=== PATIENT | female | born 1960 | race Caucasian/White ===

== ENCOUNTER 2021-12-04 00:35 | Day surgery (SDC) | payer OTHER, SELFPAY ==
[2021-11-23 10:28] VITALS: BMI 28.0
[2021-12-04 08:31] VITALS: BP 146/79; PULSE 68; RESP 20; TEMP 36.4; O2SAT 68; O2SAT 98
[2021-12-04] MEDS: LACTATED RINGERS 1,000 ML 150 ML IV CONT (08:43)
--- NOTE | 2021-12-04 09:10 | WPDGICN ---
Assessment and Plan Assessment and plan (1) History of colon polyps: Code(s): Z86.010 - Personal history of colonic polyps Status: Acute Assessment and Plan: Patient has a history of colon polyp. Plan is for patient have surveillance colonoscopy now and at intervals in the future. She is likely to have additional polyps over time. GI Consult Note Consult date/time: 12/04/21 09:10 HPI: Kristi Cerda is a 61 year old female Presents for screening colonoscopy. Patient reports that her current weight appetite and bowel movements are normal. She denies abdominal pain. She has had no bleeding. Patient reports her last colonoscopy in 2012 revealed colon polyps. She presents today for follow-up surveillance exam. Review of Systems Review of Systems: All systems reviewed & are unremarkable except as noted in HPI and below PMFSH Social History Social History Smoking packs per day: 1 Smoking cigarettes per day: 20.0 Years smoked: 12 Smoking pack-years: 12.00 Smoking status: Former smoker Tobacco type: cigarettes Alcohol intake: current Drinks per week: 5 Substance use: never Substance use type: does not use Living arrangements: with family Spiritual care concerns: No Meds Home Medications and Allergies Home Medications Medication Instructions Recorded Confirmed Type Adrenal Comples 2 cap PO DAILY 11/23/21 11/23/21 History Arthrosothe 3 cap PO DAILY 11/23/21 11/23/21 History Drenamin 1 cap PO DAILY 11/23/21 11/23/21 History Olprima 1 cap PO DAILY 11/23/21 11/23/21 History amoxicillin 2,000 mg PO PRN PRN 11/23/21 11/23/21 History fluticasone propionate [Allergy 1 spray INTRANASAL DAILY PRN 11/23/21 11/23/21 History Relief (fluticasone)] Allergies Allergy/AdvReac Type Severity Reaction Status Date / Time erythromycin base AdvReac Intermediate JITTERY, Verified 12/04/21 08:30 AGITATED Vital Signs Vital Signs - 24 hr 12/04/21 08:31 Temperature 97.6 F Pulse Rate 68 Respiratory Rate 20 Blood Pressure 146/79 H Pulse Oximetry 68 L Exam Narrative: Physical exam reveals patient to be alert. Vital signs stable. HEENT exam is unremarkable. Patient is anicteric. Lungs are clear to auscultation and percussion. Heart is without murmur or extra sounds. Abdominal exam bowel sounds present soft nontender with no hepatosplenomegaly. Digital external rectal exam is normal.
--- NOTE | 2021-12-04 09:29 | WPDANESEPPF ---
Anes - Initial Pre Proc Eval Procedure: Operation Date: 12/04/21 09:45 Proposed Procedures p Screening Colonoscopy - David Casas MD Date/Time: 12/04/21 09:29 Surgeon: David Casas MD Pre Op Diagnosis: hx of colon polyps, neoplasm screening Patient Data Age: 61 Gender: F Height: 1.68 m Weight: 79 kg Last Vital Signs Temp 97.6 F 12/04/21 08:31 Pulse 68 12/04/21 08:31 Resp 20 12/04/21 08:31 BP 146/79 H 12/04/21 08:31 Pulse Ox 68 L 12/04/21 08:31 Allergies Allergy/AdvReac Type Severity Reaction Status Date / Time erythromycin base AdvReac Intermediate JITTERY, Verified 12/04/21 08:30 AGITATED Home Medications Medication Instructions Recorded Confirmed Type Adrenal Comples 2 cap PO DAILY 11/23/21 11/23/21 History Arthrosothe 3 cap PO DAILY 11/23/21 11/23/21 History Drenamin 1 cap PO DAILY 11/23/21 11/23/21 History Olprima 1 cap PO DAILY 11/23/21 11/23/21 History amoxicillin 2,000 mg PO PRN PRN 11/23/21 11/23/21 History fluticasone propionate [Allergy 1 spray INTRANASAL DAILY PRN 11/23/21 11/23/21 History Relief (fluticasone)] Patient hx anesthesia problems: none Family hx anesthesia problems: none Results Review: All pre-operative results and documents have been reviewed as part of the pre-operative evaluation. PMFSH Social History Social History Smoking packs per day: 1 Smoking cigarettes per day: 20.0 Years smoked: 12 Smoking pack-years: 12.00 Smoking status: Former smoker Tobacco type: cigarettes Alcohol intake: current Drinks per week: 5 Substance use: never Substance use type: does not use Living arrangements: with family Spiritual care concerns: No Anes - Eval Final PreProcedure Day of Procedure 12/04/21 09:29 Patient weight: normal Heart: regular rate and rhythm Lungs: clear to auscultation Airway: Mallampati scale Last oral intake: >/= 8 hours ASA classification: II Emergent: no Anesthetic plan: proceed Anesthesia type and monitoring: general GIVS and standard monitoring Results Review: All pre-operative results and documents have been reviewed as part of the pre-operative evaluation. Informed Consent: The patient's anesthetic plan and its attendant risks and benefits were discussed with the patient/family/POA. Questions were solicited and answers provided to the satisfaction of the patient/family/POA.
[2021-12-04 10:19] VITALS: BP 124/71; PULSE 67; RESP 24; O2SAT 98
[2021-12-04 10:29] VITALS: BP 141/86; PULSE 69; RESP 17; O2SAT 100
[2021-12-04 10:39] VITALS: BP 164/86; PULSE 60; RESP 17; O2SAT 100
== END 2021-12-04 10:51 | disposition home or self-care (01) ==
PROVIDERS: PCP Family Medicine Adolescent Medicine; Visit Provider Internal Medicine Gastroenterology
PROC: 0DJD8ZZ Inspection of Lower Intestinal Tract, Via Natural or Artificial Opening Endoscopic (ICD-10-PCS; CPT 45378; principal; 2021-12-04 09:45)
DX: Z12.11 Encounter for screening for malignant neoplasm of colon (principal); K63.5 Polyp of colon; K64.8 Other hemorrhoids; K57.30 Diverticulosis of large intestine without perforation or abscess without bleeding; Z87.891 Personal history of nicotine dependence
CPT/HCPCS: 45385; 88305; J2704; J7120

== ENCOUNTER → 2023-01-24 13:00 | Outpatient (CLI) | payer OTHER, SELFPAY ==
--- NOTE | ~2023-01-24 | DEXA_ITS ---
Bone Density Report Name: LEONORA PHELPS Age: 62 Sex: Female Ethnicity: White Date of : 1960 Indication: postmenopausal; screening for osteoporosis; height loss; Referring Provider: Shelton, Fatou Lobato Study: Bone densitometry was performed. Exam Date: January 24, 2023 Accession number: [id number] Bone Density: Region BMD T-score Z-score Classification AP Spine (L1-L4) 1.020 -0.2 1.5 Normal World Health Organization criteria for BMD impression classify patients as: Normal (T-score at or above -1.0), Osteopenia (T-score between -1.0 and -2.5), or Osteoporosis (T-score at or below -2.5). Clinical Information Provided by Patient: Patient maximum height was 67.5 Menopause Age: 56 No regular weight bearing exercise Drinks caffeinated beverages Onset of menses at age 11 Number of children 0 Missed period for more than 6 months in a row Impression: The patient has normal bone mass. Discussion: BONE DENSITY IS ABOVE THE MINIMUM DESIRABLE LEVEL AT ALL SKELETAL SITES TESTED. This patient?s bone mineral density is above the minimum desirable level (T-score -1.0 or better) at all sites measured. The patient should follow a healthful lifestyle (good nutrition with adequate calcium and vitamin D, and appropriate weight-bearing exercise). Follow-Up: Consider repeating this study in 5 years or sooner if there is some new clinical indication. Reported by: [facility] on 01/24/2023 1:17:00 PM. Reviewed, dictated and finalized at location Nidia HUERTA
--- NOTE | ~2023-01-24 | MM_ITS ---
EXAMINATION: MM screening [facility] BI w jomar HISTORY: Screening mammogram TECHNIQUE: Craniocaudal and mediolateral oblique 3-D tomosynthesis images were obtained and synthetic 2-D images were generated. CAD analysis was submitted and interpreted. COMPARISON: 04/25/2016, 04/11/2016, 02/01/2014 BREAST PARENCHYMAL COMPOSITION: The breasts are heterogeneously dense, which may obscure small masses . FINDINGS: No suspicious mass, calcification, or architectural distortion are identified in either herminia ast to suggest malignancy. There has been no suspicious interval change. IMPRESSION: 1. No mammographic evidence of malignancy. 2. Recommend routine screening mammography in one year. BI-RADS Category 1: Negative Reviewed, dictated and finalized at location A.
== END ==
PROVIDERS: PCP Family Medicine Adolescent Medicine; Visit Provider Physician Assistant
DX: Z12.31 Encounter for screening mammogram for malignant neoplasm of breast (principal); Z78.0 Asymptomatic menopausal state
CPT/HCPCS: 77063; 77067; 77080

== ENCOUNTER → 2023-07-22 10:34 | Outpatient (CLI) | payer MEDICARE, SELFPAY ==
--- NOTE | ~2023-07-22 | XR_ITS ---
Left Knee Technique: AP, lateral, and sunrise views were obtained. Clinical History: Pain Findings: There is a transverse, minimally displaced fracture of the patellar body. No other fracture or dislocation seen. There is minimal spurring at the medial joint line. Small joint effusion presen t.. Impression: Transverse, minimally displaced patellar fracture. Associated small joint effusion. Reviewed, dictated and finalized at location . [facility] Impression: Transverse, minimally displaced patellar fracture. Associated small joint effusion.
== END ==
PROVIDERS: PCP Family Medicine Adolescent Medicine; Visit Provider Family Medicine Adolescent Medicine
DX: S82.032A Displaced transverse fracture of left patella, initial encounter for closed fracture (principal); M25.462 Effusion, left knee
CPT/HCPCS: 73562

== ENCOUNTER 2023-07-25 13:28 | Outpatient (CLI) | payer MEDICARE, SELFPAY ==
--- NOTE | ~2023-07-25 | US_ITS ---
EXAMINATION: US venous doppler [facility] DATE: 07/25/2023 14:16 INDICATION: Lower limb swelling and pain TECHNIQUE: Grayscale ultrasound images without and with compression and Doppler ultrasound images of the left lower extremity veins were obtained. COMPARISON: None. FINDINGS: The visualized portions of left common femoral vein, profunda (deep) femoral vein, femoral vein, popl iteal vein, gastrocnemius vein and greater saphenous vein outflow are patent. There is noncompressibl e thrombus in both of the paired left peroneal veins and in one of the paired left posterior tibial v eins. IMPRESSION: 1. Left-sided [id number] deep venous thrombosis in both the peroneal veins and one of the paired posterior tibial veins at the left calf. Reviewed, dictated and finalized at location A. ERCIAL FISHERMAN IMPRESSION: 1. Left-sided [id number] deep venous thrombosis in both the peroneal veins and one of the paired posterior tibial veins at the left calf.
== END 2023-07-25 13:29 | disposition home or self-care (01) ==
PROVIDERS: PCP Family Medicine Adolescent Medicine; Visit Provider Orthopaedic Surgery
DX: R60.9 Edema, unspecified (principal); I82.452 Acute embolism and thrombosis of left peroneal vein; I82.442 Acute embolism and thrombosis of left tibial vein
CPT/HCPCS: 93971

== ENCOUNTER 2023-08-14 14:09 | Outpatient (CLI) | payer MEDICARE, SELFPAY ==
--- NOTE | ~2023-08-14 | US_ITS ---
EXAMINATION:US venous doppler LE LT INDICATION:Acute DVT. TECHNIQUE: Multiple grayscale, color flow and Doppler images of the left lower extremity deep venous systems were obtained and reviewed. COMPARISON:07/25/2023 FINDINGS: The common femoral, superficial femoral and popliteal veins demonstrate normal respiratory variation, augmentation and compressibility. Color flow is also seen within the posterior tibial, pe roneal, greater saphenous and profunda veins. Interval resolution of DVT in the left posterior tibial and peroneal veins. IMPRESSION: 1: No lower extremity deep venous thrombosis. Reviewed, dictated and finalized at location L. OL [employer]OD[employer]
== END 2023-08-14 14:10 | disposition home or self-care (01) ==
PROVIDERS: PCP Family Medicine Adolescent Medicine; Visit Provider Orthopaedic Surgery
DX: I82.452 Acute embolism and thrombosis of left peroneal vein (principal)
CPT/HCPCS: 93971

== ENCOUNTER 2024-11-26 07:44 | Outpatient (CLI) | payer MEDICARE, SELFPAY ==
--- NOTE | ~2024-11-26 | US_ITS ---
US soft tissue groin LT 11/26/2024 08:19 Indication: Left groin pain. Mass left inguinal region for to 3 weeks. Procedure: High-resolution Limited ultrasound of the left groin Comparison: No prior studies for comparison. Findings: There is discontinuity of the muscle measuring 9 mm, suspicious for hernia. No definite int rusion of bowel into the hernia. In the area of palpable concern in the left inguinal region there is an oval hypoechoic mass with horizontal striations measuring 3.9 x 2.9 x 1.2 cm, possibly a lipoma. Impression: 1: Possible 3.9 cm lipoma in the area palpable concern. 2: Possible left inguinal hernia. Recommend correlation with CT pelvis with contrast. Reviewed, dictated and finalized at location B. Impression: 1: Possible 3.9 cm lipoma in the area palpable concern. 2: Possible left inguinal hernia. Recommend correlation with CT pelvis with co ntrast.
== END 2024-11-26 07:45 | disposition home or self-care (01) ==
LOC: MICIMG 07:45
PROVIDERS: PCP Family Medicine Adolescent Medicine; Visit Provider Nurse Practitioner Family
DX: R22.42 Localized swelling, mass and lump, left lower limb (principal)
CPT/HCPCS: 76882